=== PATIENT | male | born 1995 | race Caucasian/White ===

== ENCOUNTER 2024-08-03 11:36 | Emergency (ER) | payer MEDICAID, SELFPAY ==
[2024-08-03 11:49] VITALS: BP 118/74; PULSE 69; RESP 19; TEMP 36.7; O2SAT 100; BMI 24.3
--- NOTE | 2024-08-03 12:01 | XR_ITS ---
Examination: PA lateral chest 2 views TECHNIQUE: Upright AP lateral chest 2 views Exam date and time: August 03, 2024 1222 hours INDICATIONS: Coughing this week FINDINGS: Normal heart size Lungs are clear. The osseous structures are intact IMPRESSION: No active disease
--- NOTE | 2024-08-03 14:16 | EDNOTE_ITS ---
ED Abdominal Pain RME/HPI General Chief Complaint: Abdominal Pain Stated complaint: URI Time seen by provider: 08/03/24 11:52 Arrival date/time: 08/03/24 11:36 This is a 29-year-old homeless male who presents to the emergency department with complaints of nasal congestion, sneezing and bodyaches x 1 day. Patient denies taking medication prior to ED visit. Patient states he is staying at the [facility] here in the town at this time denies fever, chest pain, dyspnea. Source: patient Related Data Previous Rx's ?Medication ?Instructions ?Recorded acetaminophen 325 mg tablet 650 mg (2 x 325 mg) PO Q6H PRN 08/03/24 (Tylenol) fever or pain #30 tabs azithromycin 250 mg tablet See Rx Instructions PO .COMPLEX #6 08/03/24 tabs Allergies Allergy/AdvReac Type Severity Reaction Status Date / Time No Known Allergies Allergy Verified 08/03/24 11:38 Review of Systems Review of Systems Systems Reviewed: All systems reviewed, normal except as documented Narrative Review of Systems: Gen: No fever, no chills, no weight loss EYES: No discharge, no visual changes, no pain HEENT: No ear pain, no congestion, no sore throat,+sneezing PULM: No shortness of breath, +cough, no congestion CV: No chest pain, no dyspnea on exertion, no palpitations GI: No nausea, no vomiting, no diarrhea, no pain, no constipation : No frequency, no urgency,? no dysuria Musc/skel: No joint pain, no back pain Skin: No rash? Psyc: No hallucinations, no depression Heme/Lymph: No easy bleeding or bruising tendencies Neuro: No weakness, no headache Course Quality Measures none Orders Category Date Time Status Bedside COVID-19 Antigen Test NOW Care 08/03/24 12:00 Completed Bedside Influenza A&B Antigen Test NOW Care 08/03/24 12:01 Completed XR chest 2V Stat Exams 08/03/24 12:01 Completed Vital Signs Vital signs: Vital Signs Temperature 98.1 F 08/03/24 11:49 Pulse Rate 69 08/03/24 11:49 Respiratory Rate 19 08/03/24 11:49 Blood Pressure 118/74 08/03/24 11:49 Pulse Oximetry (%) 100 08/03/24 11:49 Oxygen Delivery Method Room Air 08/03/24 11:49 Abdominal Pain MDM MDM Narrative MDM Narrative:: [id number] negative for COVID, influenza A and B. Patient advice to take medications as directed. Discussed that viral URIs are a self-limiting disease, and can taking up to 2 weeks to resolve. Ibuprofen prn fevers. Fluids, soups, te a, honey advised. Use humidifier at night. Follow up in 2-3 days if symptoms persist. Educated patient on signs and symptoms which would require immediate evaluation in the nearest ER. Advise patient if symptoms do no improved or worsen to return to the emergency room. Patient verbalized understanding and agreed to current treatment plan Patient data External records reviewed:: [facility] previous records Clinical information provided by:: patient Social determinants that could affect healthcare access:: none Patient has the following chronic illnesses:: no How is presenting disease/condition affected by chronic disease/condition?: no chronic disease Evaluation data The following diagnostics were reviewed and interpreted by me:: radiology exam(s) Lab and/or radiology exams considered but not ordered:: no Interpretation Summary: xamination: PA lateral chest 2 views TECHNIQUE: Upright AP lateral chest 2 views Exam date and time: August 03, 2024 1222 hours INDICATIONS: Coughing this week FINDINGS: Normal heart size Lungs are clear. The osseous structures are intact IMPRESSION: No active disease Medications / Prescriptions Medications or Prescriptions considered but not ordered:: no Medication administrations:: no Consultations Consultation(s) initiated? (list below): No Diagnosis Differential diagnosis abdominal pain: constipation, gastroenteritis and other ( URI, influenza, strep pharyngitis,) Most likely diagnosis given after review of the tests above:: URI Admission Indicated Admission indicated?: not indicated Admission Request Was there a request for admission?: No Disposition Plan Disposition Plan: Discharge Discharge Attestation Discharge Attestation: The patient and all family members were given an opportunity to ask questions and understood the discharge instructions. Discharge instructions specifically effects, indications for sooner follow up or return to the emergency department, and the expected course of current diagnosis. Patient condition: Stable Discharge Plan Plan Patient Disposition: HOME (Self Care) Patient condition on transfer: Stable Prescriptions/Referrals Prescriptions/Med Rec: New azithromycin 250 mg tablet See Rx Instructions .ROUTE .COMPLEX Qty: 6 0RF Rx Instructions: For 250 mg dose pack: take 500 mg today (day 1), then 250 mg for 4 days (days 2-5) acetaminophen [Tylenol] 325 mg tablet 650 mg PO Q6H PRN (Reason: fever or pain) Qty: 30 0RF Referrals: Nolberto Moser MD [Primary Care Provider] - In 1 week Problem List Clinical Impression: URI (upper respiratory infection) Patient/Caregiver Discharge Instructions Discharge Activity: activity as tolerated Education Materials: Preventing Common Respiratory ... Additional Instructions: Follow-up with your primary doctor take your medication as directed please return to the emergency department with any worsening symptoms or condition. Print Language: Belarusian Stand Alone Forms: [employer] Award Info., Work/School Release, Patient Portal Info Letter PA/[employer] Supervising Physician PA/ADRIAN Supervising Physician: Dr Quinones
== END 2024-08-03 14:58 | disposition home or self-care (01) ==
PROVIDERS: Emergency Provider Emergency Medicine; PCP Family Medicine
DX: J06.9 Acute upper respiratory infection, unspecified (principal); Z59.01 Sheltered homelessness
CPT/HCPCS: 71046; 87400; 87811; 99283